=== PATIENT | male | born 1935 | race Caucasian/White ===

== ENCOUNTER 2016-08-23 16:58 | Inpatient (IN) | payer MEDICARE, OTHER ==
[~2016-08-23] VITALS: Ht 165.1 cm; Wt 82.1 kg
[2016-08-23 18:08] LABS: BASOPHILS % (AUTO) 0.4 % (0.0-2.0); DIFF TOTAL % 100 %; EOSINOPHILS # (AUTO) 0.8 /CMM (0.0-0.7); EOSINOPHILS % (AUTO) 7.8 % (0.0-6.0); HEMATOCRIT 37 % (39-51); HEMOGLOBIN 12.2 g/dL (13.5-17.5); MEAN CORPUSCULAR HEMOGLOBIN 30 PG (26.0-33.0); MEAN CORPUSCULAR HGB CONC 33 g/dl (31.0-36.0); MEAN CORPUSCULAR VOLUME 91 fL (80-96); MONOCYTES # (AUTO) 0.8 /CMM (0.1-1.30); MONOCYTES % (AUTO) 7.9 % (2.0-12.0); NEUTROPHILS # (AUTO) 7.7 /CMM (1.8-8.9); NEUTROPHILS % (AUTO) 73.9 % (43.0-81.0); PLATELET COUNT (AUTO) 581 /CMM (150-450); RED BLOOD CELL COUNT(AUTO) 4.07 MIL/uL (4.5-6.0); WHITE BLOOD COUNT (AUTO) 10.3 K/uL (4.3-11.0)
[2016-08-23] MEDS ORDERED: ATOR10TA PO (18:13)
[2016-08-23] MEDS ORDERED: DOXA2TAB2 PO (18:13)
[2016-08-23] MEDS ORDERED: AMLO10TA2 PO (18:13)
[2016-08-23] MEDS ORDERED: ASPI81TA2 PO (18:13)
[2016-08-23] MEDS ORDERED: LINE600T2 PO (18:13)
[2016-08-23] MEDS ORDERED: LEVO500T90 PO (18:13)
[2016-08-23] MEDS ORDERED: FENO160T PO (18:13)
[2016-08-23] MEDS ORDERED: GLIP5TAB13 PO (18:13)
[2016-08-23 18:16] LABS: CALCIUM, SERUM 8.6 mg/dL (8.5-10.1); CREATININE 1.6 mg/dL (0.6-1.3); POTASSIUM 3.9 mmol/L (3.5-5.1)
[2016-08-23 18:22] LABS: ALBUMIN 2.1 g/dL (3.4-5.0); BILIRUBIN,DIRECT 0.2 mg/dL (0.0-0.2); BILIRUBIN,TOTAL 0.4 mg/dL (0.2-1.0); INDIRECT BILIRUBIN 0.2 mg/dL (0.0-1.1)
[2016-08-23 18:28] LABS: INR 1.04 (0.87-1.13); PROTHROMBIN TIME 10.9 SECS (9.5-12.7)
[2016-08-23] MEDS ORDERED: MORPHINE SULFATE INJ 4 MG/ML DISP.SYRIN ONE (18:54)
[2016-08-23] MEDS ORDERED: MORPHINE SULFATE INJ 2 MG/ML DISP.SYRIN IV ONE (19:00)
[2016-08-23 19:50] LABS: EOSINOPHILS % (MANUAL) 4 % (0-4); LYMPHOCYTES % (MANUAL) 7 % (16-48)
[2016-08-23 19:51] LABS: PLATELET ESTIMATE INCREASED; RBC MORPHOLOGY COMMENT NORMAL RBC MORPH
[2016-08-23 20:00] VITALS: BP 145/81
[2016-08-23] MEDS ORDERED: *INSULIN REGULAR(HUMULIN R)HUM 100 UNIT/ML VIAL SQ PRN (20:00)
[2016-08-23] MEDS ORDERED: ONDANSETRON HCL/PF 4 MG/2 ML VIAL IVP PRN ×2 (20:00→20:15)
[2016-08-23] MEDS ORDERED: IV NS 0.9% 1,000 ML IV SCH (20:00)
[2016-08-23] MEDS ORDERED: Z GUARD REMEDY 2 OZ OINT TP PRN ×2 (20:00→20:15)
[2016-08-23] MEDS ORDERED: MAGNESIUM HYDROXIDE 30 ML UDC PO PRN ×2 (20:00→20:15)
[2016-08-23] MEDS ORDERED: ACETAMINOPHEN 325 MG TABLET PO PRN ×2 (20:00→20:15)
[2016-08-23] MEDS ORDERED: INSULIN REGULAR, HUMAN 100 UNIT/ML 3 ML VIAL SQ PRN (20:00)
[2016-08-23] MEDS ORDERED: DEXTROSE 50%-WATER 50 ML DISP.SYRIN IV PRN ×2 (20:00→20:15)
[2016-08-23] MEDS ORDERED: ZOLPIDEM TARTRATE 5 MG TABLET PO PRN ×2 (20:00→20:15)
[2016-08-23] MEDS ORDERED: MAG HYDROX/AL HYDROX/SIMETH 30 ML UDC PO PRN ×2 (20:00→20:15)
[2016-08-23] MEDS ORDERED: BLOOD SUGAR DIAGNOSTIC 1 EACH STRIP IN SCH (20:00)
[2016-08-23] MEDS ORDERED: HYDROCODONE/APAP 5/325MG 1 EACH TABLET PO PRN ×2 (20:00→20:15)
[2016-08-23 20:30] VITALS: BP 145/81
[2016-08-23] MEDS ORDERED: IV SET PRIMARY PUMP SET 1 EA INFUS.SET MC ONE (20:54)
[2016-08-23] MEDS: IV NS 0.9% 1,000 ML IV PRN (21:08)
[2016-08-23] MEDS: ATORVASTATIN 10 MG TABLET PO SCH (21:10)
[2016-08-23] MEDS: DOXAZOSIN MESYLATE (1 MG) 1 MG TABLET PO SCH (21:10)
[2016-08-23] MEDS: BLOOD SUGAR DIAGNOSTIC 1 EACH STRIP IN SCH (21:23)
[2016-08-23] MEDS ORDERED: ATORVASTATIN 10 MG TABLET PO SCH (22:00)
[2016-08-23] MEDS ORDERED: BLOOD SUGAR DIAGNOSTIC 1 EACH STRIP VI SCH ×3 (22:00)
[2016-08-23] MEDS ORDERED: INSULIN REGULAR, HUMAN 100 UNIT/ML 10 ML VIAL ONE (22:08)
[2016-08-23] MEDS: *INSULIN REGULAR(HUMULIN R)HUM 100 UNIT/ML VIAL SQ PRN (22:19)
[2016-08-24] MEDS: IV NS 0.9% 1,000 ML IV PRN ×2 (06:11→22:15)
[2016-08-24 06:45] LABS: KETONES,URINE NEGATIVE (NEGATIVE); LEUKOCYTE ESTERASE ,URINE NEGATIVE (NEGATIVE); PH,URINE 5.5 (5.0-8.0)
[2016-08-24 06:46] LABS: ADD UA MICROSCOPIC YES
[2016-08-24 06:47] LABS: ADD URINE CULTURE NO; MUCUS,URINE Rare /LPF (None Seen); WBC,URINE 0-2 /HPF (0-3)
[2016-08-24] MEDS: BLOOD SUGAR DIAGNOSTIC 1 EACH STRIP IN SCH ×4 (06:53→22:11)
[2016-08-24] MEDS ORDERED: FENTANYL PF 100MCG/2ML AMPUL ONE (06:53)
[2016-08-24] MEDS ORDERED: MIDAZOLAM HCL 2 MG/2ML VIAL ONE (06:53)
[2016-08-24] MEDS ORDERED: ROCURONIUM BROMIDE 50 MG/5 ML ONE (06:53)
[2016-08-24] MEDS ORDERED: PANTOPRAZOLE 40 MG TABLET.DR PO SCH (07:30)
[2016-08-24 08:00] VITALS: BP 129/73
[2016-08-24] MEDS ORDERED: AMLODIPINE BESYLATE 10 MG TABLET PO SCH (09:00)
[2016-08-24] MEDS ORDERED: ASPIRIN 81 MG TAB.CHEW PO SCH (09:00)
[2016-08-24] MEDS ORDERED: Medication Not On Formulary EA (Fenofibrate 160 MG) PO SCH (09:00)
[2016-08-24] MEDS: PANTOPRAZOLE 40 MG TABLET.DR PO SCH (09:16)
[2016-08-24] MEDS: AMLODIPINE BESYLATE 10 MG TABLET PO SCH (09:17)
[2016-08-24] MEDS: ASPIRIN 81 MG TAB.CHEW PO SCH (09:18)
[2016-08-24] MEDS: LACTOBACILLUS RHAMNOSUS GG 1 EACH CAP.SPRINK PO SCH ×2 (09:22→17:29)
[2016-08-24] MEDS: INSULIN REGULAR, HUMAN 100 UNIT/ML 3 ML VIAL SQ PRN ×2 (12:10→17:28)
[2016-08-24 16:00] VITALS: BP 140/72
[2016-08-24] MEDS ORDERED: IV NS 0.9% 250 ML IV ONE (19:37)
[2016-08-24 20:00] VITALS: BP 134/58
[2016-08-24] MEDS: ATORVASTATIN 10 MG TABLET PO SCH (22:11)
[2016-08-24] MEDS: DOXAZOSIN MESYLATE (1 MG) 1 MG TABLET PO SCH (22:11)
[2016-08-24] MEDS: *INSULIN REGULAR(HUMULIN R)HUM 100 UNIT/ML VIAL SQ PRN (22:14)
[2016-08-25 08:00] VITALS: BP 152/74
[2016-08-25 08:30] LABS: BASOPHILS % (AUTO) 0.2 % (0.0-2.0); DIFF TOTAL % 100 %; EOSINOPHILS # (AUTO) 1.2 /CMM (0.0-0.7); EOSINOPHILS % (AUTO) 10.9 % (0.0-6.0); HEMATOCRIT 35 % (39-51); HEMOGLOBIN 11.6 g/dL (13.5-17.5); LYMPHOCYTES # (AUTO) 1.7 /CMM (0.8-4.8); LYMPHOCYTES % (AUTO) 14.6 % (20.0-44.0); MEAN CORPUSCULAR HEMOGLOBIN 30 PG (26.0-33.0); MEAN CORPUSCULAR HGB CONC 33 g/dl (31.0-36.0); MEAN CORPUSCULAR VOLUME 92 fL (80-96); MONOCYTES # (AUTO) 0.9 /CMM (0.1-1.30); MONOCYTES % (AUTO) 7.7 % (2.0-12.0); NEUTROPHILS # (AUTO) 7.6 /CMM (1.8-8.9); NEUTROPHILS % (AUTO) 66.6 % (43.0-81.0); PLATELET COUNT (AUTO) 554 /CMM (150-450); RED BLOOD CELL COUNT(AUTO) 3.85 MIL/uL (4.5-6.0); WHITE BLOOD COUNT (AUTO) 11.5 K/uL (4.3-11.0)
[2016-08-25 08:51] LABS: ALBUMIN 1.9 g/dL (3.4-5.0); BILIRUBIN,TOTAL 0.4 mg/dL (0.2-1.0); CALCIUM, SERUM 8.6 mg/dL (8.5-10.1); CREATININE 1.4 mg/dL (0.6-1.3); PHOSPHORUS 3.7 mg/dL (2.5-4.9); POTASSIUM 4.8 mmol/L (3.5-5.1); TOTAL PROTEIN, SERUM 6.5 g/dL (6.4-8.2)
[2016-08-25] MEDS: LACTOBACILLUS RHAMNOSUS GG 1 EACH CAP.SPRINK PO SCH ×2 (11:01→17:06)
[2016-08-25] MEDS: ASPIRIN 81 MG TAB.CHEW PO SCH (11:02)
[2016-08-25] MEDS: PANTOPRAZOLE 40 MG TABLET.DR PO SCH (11:02)
[2016-08-25] MEDS: BLOOD SUGAR DIAGNOSTIC 1 EACH STRIP IN SCH ×4 (11:03→21:34)
[2016-08-25] MEDS: AMLODIPINE BESYLATE 10 MG TABLET PO SCH (11:03)
[2016-08-25] MEDS: INSULIN REGULAR, HUMAN 100 UNIT/ML 3 ML VIAL SQ PRN ×2 (11:18→17:55)
[2016-08-25 16:02] VITALS: BP 145/72
[2016-08-25 16:26] LABS: KETONES,URINE NEGATIVE (NEGATIVE); LEUKOCYTE ESTERASE ,URINE NEGATIVE (NEGATIVE)
[2016-08-25 16:34] LABS: ADD UA MICROSCOPIC YES
[2016-08-25 16:36] LABS: ADD URINE CULTURE NO; WBC,URINE 0-2 /HPF (0-3)
[2016-08-25 18:06] LABS: CREATININE, URINE 38.5 MG/DL (30.0-125.0); URINE TOTAL PROTEIN 24.9 mg/dL (0-11.9)
[2016-08-25] MEDS ORDERED: IV SET PRIMARY PUMP SET 1 EA INFUS.SET MC ONE (18:40)
[2016-08-25] MEDS: IV NS 0.9% 1,000 ML IV PRN (18:45)
[2016-08-25 20:00] VITALS: BP 154/63
[2016-08-25] MEDS: ATORVASTATIN 10 MG TABLET PO SCH (21:33)
[2016-08-25] MEDS: DOXAZOSIN MESYLATE (1 MG) 1 MG TABLET PO SCH (21:33)
[2016-08-25] MEDS: *INSULIN REGULAR(HUMULIN R)HUM 100 UNIT/ML VIAL SQ PRN (22:09)
[2016-08-26] MEDS ORDERED: BUPIVACAINE 0.5 % PF 150 MG/30 ML VIAL ONE (05:51)
[2016-08-26] MEDS: BLOOD SUGAR DIAGNOSTIC 1 EACH STRIP IN SCH ×2 (07:40→12:00)
[2016-08-26 08:00] VITALS: BP 158/69
[2016-08-26 08:38] VITALS: BP 158/69
[2016-08-26] MEDS: PANTOPRAZOLE 40 MG TABLET.DR PO SCH (08:38)
[2016-08-26] MEDS: ASPIRIN 81 MG TAB.CHEW PO SCH (08:38)
[2016-08-26] MEDS: AMLODIPINE BESYLATE 10 MG TABLET PO SCH (08:38)
[2016-08-26] MEDS: LACTOBACILLUS RHAMNOSUS GG 1 EACH CAP.SPRINK PO SCH (08:38)
[2016-08-26 10:51] LABS: BASOPHILS % (AUTO) 0.3 % (0.0-2.0); DIFF TOTAL % 100 %; EOSINOPHILS # (AUTO) 0.7 /CMM (0.0-0.7); EOSINOPHILS % (AUTO) 7.9 % (0.0-6.0); HEMATOCRIT 34 % (39-51); HEMOGLOBIN 11.3 g/dL (13.5-17.5); LYMPHOCYTES # (AUTO) 1.2 /CMM (0.8-4.8); LYMPHOCYTES % (AUTO) 12.7 % (20.0-44.0); MEAN CORPUSCULAR HEMOGLOBIN 30 PG (26.0-33.0); MEAN CORPUSCULAR HGB CONC 33 g/dl (31.0-36.0); MEAN CORPUSCULAR VOLUME 91 fL (80-96); MONOCYTES # (AUTO) 0.8 /CMM (0.1-1.30); MONOCYTES % (AUTO) 8.1 % (2.0-12.0); NEUTROPHILS # (AUTO) 6.8 /CMM (1.8-8.9); PLATELET COUNT (AUTO) 644 /CMM (150-450); RED BLOOD CELL COUNT(AUTO) 3.73 MIL/uL (4.5-6.0); WHITE BLOOD COUNT (AUTO) 9.5 K/uL (4.3-11.0)
[2016-08-26 11:03] LABS: CALCIUM, SERUM 8.5 mg/dL (8.5-10.1); CREATININE 1.3 mg/dL (0.6-1.3)
[2016-08-26] MEDS: INSULIN REGULAR, HUMAN 100 UNIT/ML 3 ML VIAL SQ PRN (12:20)
[2016-08-26] MEDS ORDERED: HYDR-3326 PO (13:20)
[2016-08-26] MEDS ORDERED: ANESTHESIA TRAY IN PYXIS 1 EA TRAY MC ONE (13:24)
[2016-08-27 11:33] LABS: *SPE ALBUMIN 2.3 g/dL (2.9-4.4)
[2016-08-28 03:09] LABS: VIT D, 25-HYDROXY 27.6 ng/mL (30.0-100.0)
[2016-08-28 13:24] LABS: PTH, INTACT 26 pg/mL (15-65)
== END 2016-08-26 14:45 | disposition home or self-care (01) | DRG 559 ==
LOC: ER 17:00 → MED 20:11
PROVIDERS: ADMIT Student in an Organized Health Care Education/Training Program; ATTEND Student in an Organized Health Care Education/Training Program
PROC: 0S993ZZ Drainage of Right Hip Joint, Percutaneous Approach (ICD-10-PCS; principal; 2016-08-26 06:30)
DX: T84.51XA Infection and inflammatory reaction due to internal right hip prosthesis, initial encounter (principal); E43 Unspecified severe protein-calorie malnutrition; N17.0 Acute kidney failure with tubular necrosis; E87.1 Hypo-osmolality and hyponatremia; Y83.1 Surgical operation with implant of artificial internal device as the cause of abnormal reaction of the patient, or of later complication, without mention of misadventure at the time of the procedure; E78.5 Hyperlipidemia, unspecified; Y92.009 Unspecified place in unspecified non-institutional (private) residence as the place of occurrence of the external cause; E86.0 Dehydration; E11.22 Type 2 diabetes mellitus with diabetic chronic kidney disease; I12.9 Hypertensive chronic kidney disease with stage 1 through stage 4 chronic kidney disease, or unspecified chronic kidney disease; N18.9 Chronic kidney disease, unspecified; Z87.891 Personal history of nicotine dependence; E11.9 Type 2 diabetes mellitus without complications; M25.551 Pain in right hip; N40.0 Benign prostatic hyperplasia without lower urinary tract symptoms; Z85.828 Personal history of other malignant neoplasm of skin; Z95.5 Presence of coronary angioplasty implant and graft; Z96.653 Presence of artificial knee joint, bilateral
CPT/HCPCS: 36415; 71010-TC; 73501; 73510-TC; 80048-TC; 80053-TC; 80076-TC; 81000-TC; 82306; 82550-TC; 82570-TC; 82652; 82962-TC; 83735-TC; 83970; 84100-TC; 84155; 84155-TC; 84165; 84300-TC; 85025-TC; 85652-TC; 85730-TC; 86140-TC; 86850-TC; 87040-TC; 87070-TC; 87081-TC; 88305-TC; 88312-TC; 97001-TC; 97116-TC; 97530-TC; A4606; J1815; J2250; J2270; J3010; J3490; J7030; J7050; Z7610

== ENCOUNTER 2017-12-12 06:31 | Inpatient (IN) | payer MEDICARE, OTHER ==
[2017-12-12] VITALS (12 sets, daily range): BP systolic 106–142; BP diastolic 56–72
[~2017-12-12] VITALS: Ht 165.1 cm; Wt 68.9 kg
[~2017-12-12 06:31] MED LIST: AMLO10TA6 PO; ASPI-1169 PO; ATOR10TA PO; DOXA2TAB2 PO; FENO160T PO; GLIP5TAB13 PO; HYDR-3974 PO
--- NOTE | 2017-12-12 06:40 | NUR ---
PLZ SEE PRE OP ADMISSION NOTES FOR MORE INFORMATION
[2017-12-12] MEDS ORDERED: ACETAMINOPHEN 325 MG TABLET ONE (06:49)
[2017-12-12] MEDS ORDERED: CELECOXIB 100 MG CAPSULE ONE (06:49)
[2017-12-12] MEDS ORDERED: CEFAZOLIN SODIUM/DEXTROSE,ISO 50 ML IV ONE (06:49)
[2017-12-12] MEDS ORDERED: oxyCODONE HCL SR 10MG TAB.SR.12H PO ONE (06:49)
[2017-12-12] MEDS ORDERED: TRANEXAMIC ACID 3,000 MG in SODIUM CHLORIDE IRRIG SOLUTION 70 ML IR ONE (08:00)
[2017-12-12] MEDS ORDERED: KETAMINE HCL (500MG/10ML) 50 MG/ML VIAL ONE (08:00)
[2017-12-12] MEDS ORDERED: SUCCINYLCHOLINE CHLORIDE 20 MG/ML VIAL ONE (08:21)
[2017-12-12] MEDS ORDERED: BACITRACIN 50000 UNITS/VIAL ONE (08:37)
[2017-12-12] MEDS ORDERED: MAGNESIUM HYDROXIDE 30 ML UDC PO PRN (10:30)
[2017-12-12] MEDS ORDERED: MENTHOL/CETYLPYRD (CEPACOL) 1 LOZ LOZENGE PO PRN (10:30)
[2017-12-12] MEDS ORDERED: ACETAMINOPHEN 325 MG TABLET PO PRN (10:30)
[2017-12-12] MEDS ORDERED: ONDANSETRON HCL/PF 4 MG/2 ML VIAL IVP PRN (10:30)
[2017-12-12] MEDS ORDERED: HYDROMORPHONE INJ 2 MG/ML DISP.SYRIN SQ PRN (10:30)
[2017-12-12] MEDS ORDERED: SENNOSIDES 8.6 MG TABLET PO PRN (10:30)
[2017-12-12] MEDS ORDERED: MORPHINE SULFATE INJ 2 MG/ML DISP.SYRIN IM PRN (10:30)
[2017-12-12] MEDS ORDERED: ONDANSETRON HCL/PF 4 MG/2 ML VIAL IV PRN (10:30)
[2017-12-12] MEDS ORDERED: diphenhydrAMINE HCL 25 MG CAPSULE PO PRN (10:30)
[2017-12-12] MEDS ORDERED: MAG HYDROX/AL HYDROX/SIMETH 30 ML UDC PO PRN (10:30)
[2017-12-12] MEDS ORDERED: BISACODYL SUPP (10 MG) 10 MG/SUPP.RECT SUPP.RECT RC PRN (10:30)
--- NOTE | 2017-12-12 11:02 | NUR ---
MS RN ADMITTING NOTES PATIENT ADMITTED TO UNIT AT 1030 FROM SURGERY S/P TOTAL LEFT HIP ARTHROPLASTY BY LINDSAY MARIE. A/O X4. VERBALLY RESPONSIVE WITH NO COMPLAINTS OF PAIN AT THIS TIME. PT AND FAMILY ORIENTED TO UNIT. PT WITH ONE DRESSING ON LEFT HIP INTACT, DRY, CLEAN WITH NO ACTIVE BLEEDING. PER DR GARCIA, DRESSING TO BE CHANGE BEFORE PT WILL BE DISCHARGED. V/S TAKEN: BP 142/69MMHG, P 79. R 18, T 97.8F. PT ON ROOM AIR, BREATHING EVEN WITH NO SOB NOTED, SP02 94%. PT HAS IV ACCESS ON RIGHT HAND G#18 INTACT AND PATENT WITH IVF OF LACTATED RANGER INFUSING, NO SIGNS OF INFILTRATION NOTED. PT HAS KNEE ABDUCTOR IN PLACE. PT S VERBALIZED THAT PT HAS DIFFICULTLY TURNING HIS HEAD TO SIDE OR WITH PAIN ON HIS NECK WHEN BEING TURN DUE TO FALL FEW WEEKS AGO, GENTLE TURNING DONE DURING ASSESSMENT. NO SKIN IS INTACT. SAFETY MEASURES INITIATED. BED PLACED ON LOW/LOCKED POSITION WITH SIDE-RAILS UP X2. CALL LIGHT PLACED WITHIN REACH. WILL CONTINUE TO MONITOR PT'S STATUS.
[2017-12-12] MEDS: IV LR 1000 ML 1,000 ML IV PRN (11:49)
[2017-12-12] MEDS: PANTOPRAZOLE 40 MG TABLET.DR PO SCH ×2 (11:58→21:24)
[2017-12-12] MEDS ORDERED: TAMS-12 PO (12:27)
--- NOTE | 2017-12-12 15:38 | NUR ---
RN NOTES HAND UPPER AND BOTTOM LACER RAY MILLS MADE AWARE OF PT'S ADMISSION TO UNIT. HE WENT TO CHECK, EVALUATE AND SPOKE TO PT. INFORMED ALSO TO HOME MEDS RECONCILIATION. WILL CONTINUE TO MONITOR.
[2017-12-12] MEDS: ANCEF 1 GM/50 ML D5W IV SCH ×2 (16:15)
[2017-12-12] MEDS: DOCUSATE SODIUM 100 MG CAPSULE PO SCH (16:22)
[2017-12-12] MEDS: HYDROCODONE/APAP 5/325MG 1 EACH TABLET PO PRN (16:23)
--- NOTE | 2017-12-12 16:26 | NUR ---
RN NOTES PATIENT COMPLAINED OF MILD PAIN ON HIS LEFT HIP WITH PAIN SCALE OF 3/10, PRN NORCO 5/325MG TAB GIVEN. WILL CONTINUE TO MONITOR.
--- NOTE | 2017-12-12 18:28 | NUR ---
MS RN CLOSING NOTES PATIENT RESTING IN BED AT MODERATE HIGH BACKREST POSITION. A/O X4. ABLE TO MAKE NEEDS KNOWN. CALMED AND COOPERATIVE. ON ROOM AIR, TOLERATING WELL WITH NO ACUTE DISTRESS NOTED. DRESSING ON LEFT HIP CLEAN, DRY, INTACT WITH NO BLEEDING NOTED. KNEE ABDUCTOR IN PLACE. IV ACCESS ON RIGHT HAND G#18 INTACT AND PATENT WITH IVF OF LR @ 100ML/HR INFUSING WELL, NO SIGNS OF INFILTRATION NOTED. ALL SAFETY MEASURES MAINTAINED.HOB KEPT ELEVATED, BED IN LOW /LOCKED POSITION WITH SIDE RAILS UP X2. ALL NEEDS AND CARE ATTENDED WELL.
--- NOTE | 2017-12-12 19:00 | NUR ---
RN OPENING NOTES PT AWAKE AND ALERT RESTING IN BED. NO COMPLAINTS OF PAIN, DISTRESS OR SOB AT THIS TIME. PT S/P LEFT HIP ARTHROPLASTY TODAY. DRESSING ON LEFT HIP CLEAN, DRY, INTACT WITH NO BLEEDING NOTED. KNEE ABDUCTOR IN PLACE. PT HAS A RIGHT HAND IV #18 RUNNING LR @100ML/HR, PT TOLERATING FLUIDS WELL. SAFETY PRECAUTIONS IN PLACE BED IN LOWEST LOCKED POSITION, X2 SIDE RAILS UP, CALL LIGHT WITHIN REACH, WILL CONTINUE TO MONITOR.
[2017-12-12] MEDS: ATORVASTATIN 10 MG TABLET PO SCH (21:24)
[2017-12-12] MEDS: DOXAZOSIN MESYLATE (1 MG) 1 MG TABLET PO SCH (21:29)
[2017-12-12] MEDS ORDERED: ZOLPIDEM TARTRATE 5 MG TABLET PO PRN (22:00)
[2017-12-13] MEDS: ANCEF 1 GM/50 ML D5W IV SCH ×2 (00:25)
[2017-12-13] MEDS: IV LR 1000 ML 1,000 ML IV PRN (00:34)
--- NOTE | 2017-12-13 06:29 | NUR ---
RN NOTES PT REFUSED MORNING LAB DRAW. ASKED LAB TO RETURN LATER ON IN THE MORNING. PT ALSO REFUSED ATTEMPT AT IV INSERTION.
--- NOTE | 2017-12-13 06:30 | NUR ---
RN CLOSING NOTES PT RESTING IN BED. PT S/P LEFT HIP ARTHROPLASTY YESTERDAY (12/12/17). PT BECAME INCREASINGLY CONFUSED THROUGHOUT THE NIGHT. NO COMPLAINTS OF PAIN, DISTRESS OR SOB OVERNIGHT. REPEATEDLY OFFERED THE PATIENT PRN PAIN MEDICATION, PT REFUSED. DRESSING ON LEFT HIP CLEAN, DRY, INTACT WITH NO BLEEDING NOTED. KNEE ABDUCTOR PILLOW IN PLACE. PT ACCIDENTLY PULLED OUT IV AT APPROXIMATELY 0430. ATTEMPTED X1 REINSERTION. PT REFUSED ANYMORE ATTEMPTS. WILL ENDORSE TO DAY SHIFT NURSE. SAFETY PRECAUTIONS IN PLACE BED IN LOWEST LOCKED POSITION, X2 SIDE RAILS UP, CALL LIGHT WITHIN REACH, WILL ENDORSE TO DAY SHIFT NURSE FOR CONTINUITY OF CARE.
--- NOTE | 2017-12-13 07:20 | NUR ---
RN OPENING NOTES RECEIVED PATIENT IN BED SLEEPING, EASILY AROUSED, CALM. A/OX 2-3, EPISODES OF CONFUSION AND FORGETFULNESS NOTED. REORIENTED THE PATIENT NEEDED. NOT IN ANY FORM OF DISTRESS. KNEE ABDUCTOR PILLOW IN PLACE, DRESSING ON LEFT HIP C/D/I. NO IV SITE NOTED, PATIENT REFUSED TO BE INSERTED THIS TIME. SAFETY PRECAUTIONS IN PLACE. BED IN LOW/LOCKED POSITION, BED ALARM ON FOR SAFETY, SIDERAILS UP, CALL LIGHT IN REACH. WILL CONTINUE TO MONITOR ACCORDINGLY.
[2017-12-13 08:00] VITALS: BP 137/72
[2017-12-13 09:10] LABS: BASOPHILS # (AUTO) 0.1 /CMM (0.0-0.2); BASOPHILS % (AUTO) 0.8 % (0.0-2.0); EOSINOPHILS % (AUTO) 5.4 % (0.0-6.0); HEMATOCRIT 30 % (39-51); HEMOGLOBIN 9.7 g/dL (13.5-17.5); LYMPHOCYTES # (AUTO) 1.2 /CMM (0.8-4.8); LYMPHOCYTES % (AUTO) 14.6 % (20.0-44.0); MEAN CORPUSCULAR HGB CONC 33 g/dl (31.0-36.0); MEAN CORPUSCULAR VOLUME 90 fL (80-96); MONOCYTES # (AUTO) 0.5 /CMM (0.1-1.30); MONOCYTES % (AUTO) 6.3 % (2.0-12.0); NEUTROPHILS % (AUTO) 72.9 % (43.0-81.0); PLATELET COUNT (AUTO) 435 /CMM (150-450); RDW COEFFICIENT OF VARIATION 14.8 (11.5-15.0); RED BLOOD CELL COUNT(AUTO) 3.27 MIL/uL (4.5-6.0); WHITE BLOOD COUNT (AUTO) 8.2 K/uL (4.3-11.0)
[2017-12-13 09:21] LABS: CALCIUM, SERUM 8.3 mg/dL (8.5-10.1); CARBON DIOXIDE 25 mmol/L (21-32); CHLORIDE 103 mmol/L (98-107); GLUCOSE 140 mg/dL (74-106); POTASSIUM 3.8 mmol/L (3.5-5.1); SODIUM SERUM 139 mmol/L (136-145); UREA NITROGEN, BLOOD 15 mg/dL (7-18)
[2017-12-13] MEDS: TAMSULOSIN 0.4 MG CAP.SR.24H PO SCH (09:37)
[2017-12-13] MEDS: DOCUSATE SODIUM 100 MG CAPSULE PO SCH ×2 (09:37→16:24)
[2017-12-13] MEDS: FENOFIBRATE NANOCRYS (145 MG) 145 MG TABLET PO SCH (09:37)
[2017-12-13] MEDS: AMLODIPINE BESYLATE 10 MG TABLET PO SCH (09:38)
--- NOTE | 2017-12-13 10:00 | NUR ---
RN NOTES PATIENT AGREED TO IV INSERTION. INSERTED IV ON RIGHT FOREARM GAUGE 22. FLUSHED. INTACT AND PATENT. CONNECTED TO IVF.
[2017-12-13] MEDS: HYDROCODONE/APAP 5/325MG 1 EACH TABLET PO PRN ×2 (11:03→16:25)
[2017-12-13 16:00] VITALS: BP 130/89
[2017-12-13] MEDS: RIVAROXABAN 10 MG TABLET PO SCH (16:30)
--- NOTE | 2017-12-13 19:26 | NUR ---
RN CLOSING NOTES PATIENT IN STABLE CONDITION. ALL NEEDS ATTENDED AND PROVIDED. IV SITE INTACT AND PATENT. TURNED AND REPOSITION PATIENT EVERY 2HRS NEEDED. KEPT PATIENT SAFE AND COMFORTABLE. ABDUCTOR PILLOW IN PLACE. BED IN LOW/LOCKED POSITION, SIDERAILS UP, CALL LIGHT IN REACH. ENDORSED TO NIGHT RN FOR [place].
--- NOTE | 2017-12-13 19:35 | NUR ---
MS RN NOTES RECEIVED RESTING COMFORTABLY ON BED,A/O X3,BREATHING REGULAR,NOT IN ANY FORM OF DISTRESS. 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
[2017-12-13 20:00] VITALS: BP 139/73
[2017-12-13] MEDS: PANTOPRAZOLE 40 MG TABLET.DR PO SCH (21:23)
[2017-12-13] MEDS: DOXAZOSIN MESYLATE (1 MG) 1 MG TABLET PO SCH (21:24)
[2017-12-13] MEDS: ATORVASTATIN 10 MG TABLET PO SCH (21:24)
--- NOTE | 2017-12-13 21:30 | NUR ---
MS RN NOTES DUE PO MEDS GIVEN SCHEDULED.HE GETS UP AND WALK TO THE HALLWAY WITH WALKER,ASSISTED BY PEDICAB DRIVER IMMACULATE,TOLERATED WELL.
--- NOTE | 2017-12-14 03:30 | NUR ---
MS RN NOTES AWAKE,ASSISTED TO BEDSIDE COMMODE AND PEE.REFUSED DIAPER.
--- NOTE | 2017-12-14 06:10 | NUR ---
MS RN NOTES SLEPT WITH INTERVALS,ABLE TO AMBULATE WITH WALKER,PAIN TOLERABLE,LEFT HIP DRESSING IN PLACE,NO BLEEDING NOTED.POSSIBLE D/C TO ARU,CASE MANAGEMENT FOR PLACEMENT.IN NO ACUTE DISTRESS.WILL ENDORSE TO DAY NURSE FOR [place].
--- NOTE | 2017-12-14 07:19 | NUR ---
MS RN OPENING NOTE RECEIVED BEDSIDE SBAR REPORT ON THE PATIENT. PATIENT IS A/O X2,CONFUSED AT TIMES, FORGETFUL, COOPERATIVE. PATIENT IS AWAKE AND RESPONSIVE IN BED. BED IS LOCKED IN LOWEST POSITION, SIDE RAILS UP X3, BED ALARM IS ON. CALL LIGHT WITHIN REACH. EDUCATED TO CALL FOR ASSISTANCE USING THE CALL LIGHT. PATIENT VERBALIZED UNDERSTANDING. L HIP SURGICAL DRESSING IS CLEAN AND DRY. SPO2 97% ON ROOM AIR. PATIENT DENIES PAIN/DISCOMFORT AT THIS TIME. WILL CONTINUE TO ASSESS/MONITOR THROUGHOUT THE SHIFT.
[2017-12-14 07:44] LABS: BASOPHILS % (AUTO) 0.1 % (0.0-2.0); EOSINOPHILS % (AUTO) 4.8 % (0.0-6.0); HEMATOCRIT 27 % (39-51); HEMOGLOBIN 8.9 g/dL (13.5-17.5); LYMPHOCYTES # (AUTO) 1.1 /CMM (0.8-4.8); LYMPHOCYTES % (AUTO) 14.8 % (20.0-44.0); MEAN CORPUSCULAR HGB CONC 33 g/dl (31.0-36.0); MEAN CORPUSCULAR VOLUME 90 fL (80-96); MONOCYTES # (AUTO) 0.5 /CMM (0.1-1.30); MONOCYTES % (AUTO) 6.8 % (2.0-12.0); NEUTROPHILS # (AUTO) 5.3 /CMM (1.8-8.9); NEUTROPHILS % (AUTO) 73.5 % (43.0-81.0); PLATELET COUNT (AUTO) 399 /CMM (150-450); RED BLOOD CELL COUNT(AUTO) 3.02 MIL/uL (4.5-6.0); WHITE BLOOD COUNT (AUTO) 7.3 K/uL (4.3-11.0)
[2017-12-14 08:00] VITALS: BP 145/67
[2017-12-14] MEDS: DOCUSATE SODIUM 100 MG CAPSULE PO SCH ×2 (09:29→17:13)
[2017-12-14] MEDS: FENOFIBRATE NANOCRYS (145 MG) 145 MG TABLET PO SCH (09:29)
[2017-12-14] MEDS: AMLODIPINE BESYLATE 10 MG TABLET PO SCH (09:29)
[2017-12-14] MEDS: TAMSULOSIN 0.4 MG CAP.SR.24H PO SCH (09:29)
[2017-12-14] MEDS: HYDROCODONE/APAP 5/325MG 1 EACH TABLET PO PRN (15:44)
--- NOTE | 2017-12-14 15:46 | NUR ---
patient complained of pain rating 8/10 in l/hip. [place] administered as ordered.
[2017-12-14 16:00] VITALS: BP 136/66
[2017-12-14] MEDS: RIVAROXABAN 10 MG TABLET PO SCH (17:19)
--- NOTE | 2017-12-14 19:08 | NUR ---
SPOKE ON THE PHONE WITH DR MAE. PER DR MAE PATIENT TO BE PLACED ON FALL PRECAUTIONS FOR TONIGHT. WILL ENDORSE TO THE VEGETABLE FARM WORKER NURSE.
--- NOTE | 2017-12-14 19:35 | NUR ---
MS ESTRELLA NOTES Patient received in bed, awake and verbally responsive. No complaints of any pain at the moment, comfortable and not in any type of distress. IV site on right hand #22g: patent and intact. Safety measures in place. Reminded patient to call for help for any assistance needed. Bed in lowest position with bed alarm and call light within reach. Will continue to monitor and assess patient. Addendum: 12/14/17 at 2002 by DAYLIN POOLE RN Surgical site dressing dry and intact. Abductor pillow placed.
[2017-12-14 19:58] VITALS: BP 122/63
--- NOTE | 2017-12-14 20:00 | NUR ---
MS RN CLOSING NOTE GAVE BEDSIDE SBAR REPORT ON THE PATIENT. PATIENT IS A/O X2,CONFUSED AT TIMES, FORGETFUL, COOPERATIVE. PATIENT IS AWAKE AND RESPONSIVE IN BED. BED IS LOCKED IN LOWEST POSITION, SIDE RAILS UP X3, BED ALARM IS ON. CALL LIGHT WITHIN REACH. EDUCATED TO CALL FOR ASSISTANCE USING THE CALL LIGHT. PATIENT VERBALIZED UNDERSTANDING. L HIP SURGICAL DRESSING IS CLEAN AND DRY. SPO2 97% ON ROOM AIR. PATIENT DENIES PAIN/DISCOMFORT AT THIS TIME.
[2017-12-14] MEDS: PANTOPRAZOLE 40 MG TABLET.DR PO SCH (21:37)
[2017-12-14] MEDS: ATORVASTATIN 10 MG TABLET PO SCH (21:37)
[2017-12-14] MEDS: DOXAZOSIN MESYLATE (1 MG) 1 MG TABLET PO SCH (21:37)
--- NOTE | 2017-12-15 05:44 | NUR ---
MS RN CLOSING NOTES Patient in bed, resting but easily arousable. No complaints of pain. Dressing on left hip surgical site dry and intact. Maintained abductor pillows between BLE. Assisted patient with bathroom needs. All anticipated provided and met. Right AC IV was just pulled out by patient. IV fluids discontinued. Possible discharge today. Stable during shift. Safety measures in place. Bed in lowest position with bed alarm on and call light within reach. Will continue to monitor patient and will endorse to oncoming shift nurse
--- NOTE | 2017-12-15 06:14 | NUR ---
MS RN - IV Insertion Notes Attempted to insert an IV with another RN, patient refused. Attempted x3 but patient refused. Will endorse to oncoming shift nurse
[2017-12-15 08:00] VITALS: BP 113/74
[2017-12-15 08:07] VITALS: BP 143/74
[2017-12-15] MEDS: AMLODIPINE BESYLATE 10 MG TABLET PO SCH (08:07)
[2017-12-15] MEDS: TAMSULOSIN 0.4 MG CAP.SR.24H PO SCH (08:07)
[2017-12-15] MEDS: FENOFIBRATE NANOCRYS (145 MG) 145 MG TABLET PO SCH (08:09)
[2017-12-15] MEDS: DOCUSATE SODIUM 100 MG CAPSULE PO SCH (08:09)
[2017-12-15] MEDS: HYDROCODONE/APAP 5/325MG 1 EACH TABLET PO PRN (08:59)
--- NOTE | 2017-12-15 11:00 | NUR ---
RN NOTES PATIENT REFUSED IV INSERTION FOR IVF. RAY MILLS NP AWARE. PER AILYN BELL TO DC IVF ONCE ADEQUATE PO INTAKE.
--- NOTE | 2017-12-15 12:30 | NUR ---
PATIENT CLEARED FOR DISCHARGE TO SNF BY SARAH MATHEWS.
[2017-12-15] MEDS ORDERED: SENN-167 PO (12:49)
[2017-12-15] MEDS ORDERED: DOCU-141 PO (12:49)
[2017-12-15] MEDS ORDERED: RIVA10TA PO (12:49)
--- NOTE | 2017-12-15 15:39 | NUR ---
FRAMING CONSULTANT NOTES DISCHARGE PATIENT IN STABLE CONDITION PICKED UP BY CLINICAL NURSING MANAGER. DISCHARGE PAPERWORK AND BELONGINGS GIVEN TO CLINICAL NURSING MANAGER. REPORT GIVEN TO ESTRELLA LONG FROM [facility]. DISCHARGE INSTRUCTIONS GIVEN TO PATIENT AND SNF RN, VERBALIZED UNDERSTANDING. CHANGED LEFT HIP INCISION DRESSING, NO COMPLICATIONS NOTED, DRESSING C/D/I. INCISION PHOTO TAKEN AND PLACED IT ON CHART. REMOVED NAME BAND. JOSE, PATIENT'S , NOTIFIED OF DISCHARGE.
== END 2017-12-15 15:15 | DRG 470 ==
LOC: DS 06:31 → MED 11:48
PROVIDERS: ADMIT Specialist; ATTEND Specialist
PROC: 0SRB0JZ Replacement of Left Hip Joint with Synthetic Substitute, Open Approach (ICD-10-PCS; principal; 2017-12-12 11:05)
DX: M16.12 Unilateral primary osteoarthritis, left hip (principal); I10 Essential (primary) hypertension; E11.9 Type 2 diabetes mellitus without complications; M81.0 Age-related osteoporosis without current pathological fracture; K21.9 Gastro-esophageal reflux disease without esophagitis; E78.5 Hyperlipidemia, unspecified; Z79.01 Long term (current) use of anticoagulants; Z96.653 Presence of artificial knee joint, bilateral; N40.0 Benign prostatic hyperplasia without lower urinary tract symptoms; Z96.641 Presence of right artificial hip joint; D64.9 Anemia, unspecified; Z79.84 Long term (current) use of oral hypoglycemic drugs
CPT/HCPCS: 36415; 80048-TC; 82962-TC; 85025-TC; 86850-TC; 86921-TC; 87081-TC; 88305-TC; 88311-TC; 97110-TC; 97116-TC; 97530-TC; A4217; A6209; A6402; J0330; J0690; J2704; J3490; J7060; J7120; Q0163